=== PATIENT | female | born 1985 | race Caucasian/White ===

== ENCOUNTER 2023-08-10 12:00 | Emergency (ER) | payer OTHER ==
--- OUTSIDE RECORDS SUMMARY | 2023-08-10 12:04 | XMS REPORT | Continuity of Care Document ---
:1985 Author Organization [facility] t Address [address] [facility] [address] [place] [address] Care Team Providers Name Role Phone Lyndsay Ivan MD Primary Care Physician [phone] HARRISON FAUSTIN Attending Clinician Unavailable Lyndsay Ivan MD Attending Clinician [phone] MANDI PORTILLO Attending Clinician Unavailable Doctor Unassigned, [place] Attending Clinician Unavailable Mandi Portillo MD Attending Clinician Polina Coats RN Attending Clinician Unavailable Mark Attending Clinician Unavailable 2, [facility] Attending Clinician Unavailable LYNDSAY IVAN Attending Clinician Unavailable Mark Admitting Clinician Unavailable Payers Payer Name Policy Type Policy Number Effective Date Expiration Date S fatoumata [facility] [id number] 2016 PROGRAM (MEDICAID 00:00:00 [facility] [id number] CHOICE (HMO) Problems Condition Condition Condition Status Onset Resolution Last Treating Co mments Source Name Details Category Date Date Treatment Clinician Date High-risk High-risk Disease Active Uni vers 4-27 [place]y of [place] Branch Antepartum Antepartum Disease Active U nivers multigravi multigravi 4-27 it y of da of da of 00:00: [place] advanced advanced 00 Medica l maternal maternal Branch age age Dichorioni Dichorioni Disease Active U nivers c c 4-27 [place]y of diamniotic diam[place]otic [place] Medical , , Br anch antepartum antepartum Anxiety Anxiety Disease Active Univers disorder, disorder, 02-08 ity of unspecifie unspecifie [place] type d type 00 Medical Branch History of History of Disease Active U nivers HELLP HELLP 02-08 ity of syndrome, syndrome, 00:00: Cesar deleon currently currently 00 [facility] Branch History of History of Disease Active U nivers stillbirth stillbirth 02-08 it y of 00:00: [place] [facility] Obesity Obesity Disease Active Univers (BMI (BMI 02-08 ity of 30-39.9) 30-39.9) 00:00: [place] [facility] Obesity in Obesity in Disease Active U nivers 02-08 ity of 00:00: [place] [facility] History of History of Disease Active U nivers blood blood 02-08 ity of transfusio transfusio [place] 00 [place] Allergies, Adverse Reactions, Alerts Allergy Allergy Status Severity Reaction(s) Onset Inactive Treating Comm ents Source Name Type Date Date Clinician Codeine Propensi Active Other - See Chest Un william ty to comments 02-08 pain ity of adverse 00:00: [place] reaction 00 Medical s Branch CODEINE DRUG Active Other-Cmnt Unive rs INGREDI 02-08 ity of 00:00: [place] [facility] NO KNOWN Drug Active Univers ALLERGIE Class ity of S [facility] Social History Social Habit Start Date Stop Date Quantity Comments Source ASSERTION 2022-09-17 University of 00:00:00 [facility] History of tobacco Cigarette Smoker University of use [facility] Branch History SDOH University o f Housing Places [facility] Lived Branch Exposure to 2023-02-05 2023-02-15 Not sure University of SARS-CoV-2 (event) 00:00:00 12:32:00 [facility] Branch Alcohol intake 2023-02-15 2023-02-15 Lifetime University of 00:00:00 00:00:00 non-drinker [facility] (finding) Branch Tobacco use and 2023-02-08 2023-02-08 Smokeless Universit y of exposure 00:00:00 00:00:00 tobacco non-user [facility] dical Branch History SDOH Social 2023-02-08 2023-02-08 98 Unive rsity of Connections Phone 00:00:00 00:00:00 [place] M edical Branch History SDOH Social 2023-02-08 2023-02-08 98 Unive rsity of Connections Get 00:00:00 00:00:00 [place] Med ical Together Branch History SDOH Social 2023-02-08 2023-02-08 98 Unive rsity of Connections Mandaeism 00:00:00 00:00:00 [place] [facility] History SDOH Social 2023-02-08 2023-02-08 98 Unive rsity of Connections 00:00:00 00:00:00 [place] [facility] Membership Branch History SDOH Social 2023-02-08 2023-02-08 98 Unive rsity of Connections 00:00:00 00:00:00 [place] Medical Meetings Branch History SDOH Social 2023-02-08 2023-02-08 3 Unive rsity of Connections Living 00:00:00 00:00:00 [place] [facility] History SDAZ 2023-02-08 2023-02-08 3 University o f Housing Unable to 00:00:00 00:00:00 [facility] edical Pay Branch History SDAZ 2023-02-08 2023-02-08 3 University o f Housing Homeless 00:00:00 00:00:00 [facility] dical Last Year Branch Sex Ass[birth year] At [birth year] Universit y of 00:00:00 00:00:00 [facility] Smoking Status Start Date Stop Date Source Ex-smoker 2023-02-08 00:00:00 2023-02-08 00:00:00 [facility] Medications Ordered Filled Start Stop Current Ordering Indication Dosage Frequency Signature Comments Components Source Medication Medication Date Date Medication? Clinician (SIG) Name Name aspirin 81 2022-0 Yes [id number] 81mg Take 1 Univers mg EC 4-27 tablet by ity of tablet 00:00: mouth in [place] 00 the Medical morning. Branch aspirin 81 2022-0 Yes [id number] 81mg Take 1 Univers mg EC 4-27 tablet by ity of tablet 00:00: mouth in [place] 00 the Medical morning. Branch aspirin 81 2022-0 Yes [id number] 81mg Take 1 Univers mg EC 4-27 tablet by ity of tablet 00:00: mouth in [place] 00 the Medical morning. Branch aspirin 81 2023-0 Yes [id number] 81mg Take 1 Univers mg EC 4-27 tablet by ity of tablet 00:00: mouth in [place] 00 the Medical morning. Branch aspirin 81 2023-0 Yes [id number] 81mg Take 1 Univers mg EC 4-27 tablet by ity of tablet 00:00: mouth in [place] 00 the Medical morning. Branch aspirin 81 2023-0 Yes [id number] 81mg Take 1 Univers mg EC 4-27 tablet by ity of tablet 00:00: mouth in [place] 00 the Medical morning. Branch aspirin 81 2023-0 Yes [id number] 81mg Take 1 Univers mg EC 4-27 tablet by ity of tablet 00:00: mouth in [place] 00 the Medical morning. Branch aspirin 81 2023-0 Yes [id number] 81mg Take 1 Univers mg EC 4-27 tablet by ity of tablet 00:00: mouth in [place] 00 the Medical morning. Branch ALPRAZolam 2023-0 Yes TAKE 1 Unive rs 0.5 mg 3-20 TABLET BY ity of tablet 00:00: MOUTH [place] 00 EVERY 6 Medical HOURS Branch NEEDED FOR ANXIETY. MAXIMUM DAILY DOSE IS 4 ALPRAZolam 3-0 Yes TAKE 1 Unive rs 0.5 mg 3-20 TABLET BY ity of tablet 00:00: MOUTH [place] 00 EVERY 6 Medical HOURS Branch NEEDED FOR ANXIETY. MAXIMUM DAILY DOSE IS 4 ALPRAZolam 2023-0 Yes TAKE 1 Unive rs 0.5 mg 3-20 TABLET BY ity of tablet 00:00: MOUTH [place] 00 EVERY 6 Medical HOURS Branch NEEDED FOR ANXIETY. MAXIMUM DAILY DOSE IS 4 ALPRAZolam 2023-0 Yes TAKE 1 Unive rs 0.5 mg 3-20 TABLET BY ity of tablet 00:00: MOUTH [place] 00 EVERY 6 Medical HOURS Branch NEEDED FOR ANXIETY. MAXIMUM DAILY DOSE IS 4 ALPRAZolam 2023-0 Yes TAKE 1 Unive rs 0.5 mg 3-20 TABLET BY ity of tablet 00:00: MOUTH [place] 00 EVERY 6 Medical HOURS Branch NEEDED FOR ANXIETY. MAXIMUM DAILY DOSE IS 4 ALPRAZolam 2023-0 Yes TAKE 1 Unive rs 0.5 mg 3-20 TABLET BY ity of tablet 00:00: MOUTH [place] 00 EVERY 6 Medical HOURS Branch NEEDED FOR ANXIETY. MAXIMUM DAILY DOSE IS 4 ALPRAZolam 2023-0 Yes TAKE 1 Unive rs 0.5 mg 3-20 TABLET BY ity of tablet 00:00: MOUTH [place] 00 EVERY 6 Medical HOURS Branch NEEDED FOR ANXIETY. MAXIMUM DAILY DOSE IS 4 ALPRAZolam 2023-0 Yes TAKE 1 Unive rs 0.5 mg 3-20 TABLET BY ity of tablet 00:00: MOUTH [place] 00 EVERY 6 Medical HOURS Branch NEEDED FOR ANXIETY. MAXIMUM DAILY DOSE IS 4 ALPRAZolam 2023-0 Yes TAKE 1 Unive rs 0.5 mg 3-20 TABLET BY ity of tablet 00:00: MOUTH [place] 00 EVERY 6 Medical HOURS Branch NEEDED FOR ANXIETY. MAXIMUM DAILY DOSE IS 4 ALPRAZolam 2023-0 Yes TAKE 1 Unive rs 0.5 mg 3-20 TABLET BY ity of tablet 00:00: MOUTH [place] 00 EVERY 6 Medical HOURS Branch NEEDED FOR ANXIETY. MAXIMUM DAILY DOSE IS 4 ALPRAZolam 2023-0 Yes TAKE 1 Unive rs 0.5 mg 3-20 TABLET BY ity of tablet 00:00: MOUTH [place] 00 EVERY 6 Medical HOURS Branch NEEDED FOR ANXIETY. MAXIMUM DAILY DOSE IS 4 ALPRAZolam 2023-0 Yes TAKE 1 Unive rs 0.5 mg 3-20 TABLET BY ity of tablet 00:00: MOUTH [place] 00 EVERY 6 Medical HOURS Branch NEEDED FOR ANXIETY. MAXIMUM DAILY DOSE IS 4 ALPRAZolam 2023-0 Yes TAKE 1 Unive rs 0.5 mg 3-20 TABLET BY ity of tablet 00:00: MOUTH [place] 00 EVERY 6 Medical HOURS Branch NEEDED FOR ANXIETY. MAXIMUM DAILY DOSE IS 4 aspirin 81 2023-0 Yes 81mg Take 1 Unive rs mg EC 3-17 tablet by ity of tablet 00:00: mouth in [place] 00 the Medical morning. Branch aspirin 81 2023-0 Yes 81mg Take 1 Unive rs mg EC 3-17 tablet by ity of tablet 00:00: mouth in [place] 00 the Medical morning. Branch aspirin 81 2023-0 Yes 81mg Take 1 Unive rs mg EC 3-17 tablet by ity of tablet 00:00: mouth in [place] 00 the Medical morning. Branch aspirin 81 2023-0 Yes 81mg Take 1 Unive rs mg EC 3-17 tablet by ity of tablet 00:00: mouth in [place] 00 the Medical morning. Branch aspirin 81 3-0 Yes 81mg Take 1 Unive rs mg EC 3-17 tablet by ity of tablet 00:00: mouth in [place] 00 the Medical morning. Branch aspirin 81 3-0 2023- No 81mg Take 1 Univ ers mg EC 3-17 - tablet by ity of tablet 00:00: 00:00 mouth in [place] 00 :00 the Medical morning. Branch valACYclovi 3-0 2023- No Unive rs r 500 mg -14 02-08 ity of tablet 00:00: 00:00 [place] 00 :00 Medical Branch valACYclovi 3-0 2023- No Unive rs r 500 mg 3-14 02-08 ity of tablet 00:00: 00:00 [place] 00 :00 Medical Branch ondansetron 2023-0 Yes TAKE 1 Univ ers 4 mg 3-06 TABLET BY ity of disintegrat 00:00: MOUTH [place] ing tablet 00 UNDER THE Medi herminia TONGUE Branch FOUR TIMES DAILY NEEDED ondansetron 2023-0 Yes TAKE 1 Univ ers 4 mg 3-06 TABLET BY ity of disintegrat 00:00: MOUTH [place] ing tablet 00 UNDER THE Medi herminia TONGUE Branch FOUR TIMES DAILY NEEDED ondansetron 2023-0 Yes TAKE 1 Univ ers 4 mg 3-06 TABLET BY ity of disintegrat 00:00: MOUTH [place] ing tablet 00 UNDER THE Medi herminia TONGUE Branch FOUR TIMES DAILY NEEDED ondansetron 2023-0 Yes TAKE 1 Univ ers 4 mg 3-06 TABLET BY ity of disintegrat 00:00: MOUTH [place] ing tablet 00 UNDER THE Medi herminia TONGUE Branch FOUR TIMES DAILY NEEDED ondansetron 2023-0 Yes TAKE 1 Univ ers 4 mg 3-06 TABLET BY ity of disintegrat 00:00: MOUTH [place] ing tablet 00 UNDER THE Medi herminia TONGUE Branch FOUR TIMES DAILY NEEDED ondansetron 2023-0 Yes TAKE 1 Univ ers 4 mg 3-06 TABLET BY ity of disintegrat 00:00: MOUTH [place] ing tablet 00 UNDER THE Medi herminia TONGUE Branch FOUR TIMES DAILY NEEDED ondansetron 2023-0 Yes TAKE 1 Univ ers 4 mg 3-06 TABLET BY ity of disintegrat 00:00: MOUTH [place] ing tablet 00 UNDER THE Medi herminia TONGUE Branch FOUR TIMES DAILY NEEDED ondansetron 2023-0 Yes TAKE 1 Univ ers 4 mg 3-06 TABLET BY ity of disintegrat 00:00: MOUTH [place] ing tablet 00 UNDER THE Medi herminia TONGUE Branch FOUR TIMES DAILY NEEDED ondansetron 2023-0 Yes TAKE 1 Univ ers 4 mg 3-06 TABLET BY ity of disintegrat 00:00: MOUTH [place] ing tablet 00 UNDER THE Medi herminia TONGUE Branch FOUR TIMES DAILY NEEDED ondansetron 2023-0 Yes TAKE 1 Univ ers 4 mg 3-06 TABLET BY ity of disintegrat 00:00: MOUTH [place] ing tablet 00 UNDER THE Medi herminia TONGUE Branch FOUR TIMES DAILY NEEDED ondansetron 2023-0 Yes TAKE 1 Univ ers 4 mg 3-06 TABLET BY ity of disintegrat 00:00: MOUTH [place] ing tablet 00 UNDER THE Medi herminia TONGUE Branch FOUR TIMES DAILY NEEDED ondansetron 2023-0 Yes TAKE 1 Univ ers 4 mg 3-06 TABLET BY ity of disintegrat 00:00: MOUTH [place] ing tablet 00 UNDER THE Medi herminia TONGUE Branch FOUR TIMES DAILY NEEDED ondansetron 2023-0 Yes TAKE 1 Univ ers 4 mg 3-06 TABLET BY ity of disintegrat 00:00: MOUTH [place] ing tablet 00 UNDER THE Medi herminia TONGUE Branch FOUR TIMES DAILY NEEDED docusate 2023-0 Yes 100mg Take 1 Univer s 100 mg 2-27 capsule by ity of capsule 00:00: mouth in [place] the Medical morning Branch and 1 capsule in the evening. docusate 2023-0 Yes 100mg Take 1 Univer s 100 mg 2-27 capsule by ity of capsule 00:00: mouth in [place] the Medical morning Branch and 1 capsule in the evening. docusate 2023-0 Yes 100mg Take 1 Univer s 100 mg 2-27 capsule by ity of capsule 00:00: mouth in [place] the Medical morning Branch and 1 capsule in the evening. docusate 2023-0 Yes 100mg Take 1 Univer s 100 mg 2-27 capsule by ity of capsule 00:00: mouth in [place] the Medical morning Branch and 1 capsule in the evening. docusate 2023-0 Yes 100mg Take 1 Univer s 100 mg 2-27 capsule by ity of capsule 00:00: mouth in [place] the Medical morning Branch and 1 capsule in the evening. docusate 2023-0 Yes 100mg Take 1 Univer s 100 mg 2-27 capsule by ity of capsule 00:00: mouth in [place] [address] the Medical morning Branch and 1 capsule in the evening. docusate 2023-0 Yes 100mg Take 1 Univer s 100 mg 2-27 capsule by ity of capsule 00:00: mouth in [place] [address] the Medical morning Branch and 1 capsule in the evening. docusate 2023-0 Yes 100mg Take 1 Univer s 100 mg 2-27 capsule by ity of capsule 00:00: mouth in [place] [address] the Medical morning Branch and 1 capsule in the evening. docusate 2023-0 Yes 100mg Take 1 Univer s 100 mg 2-27 capsule by ity of capsule 00:00: mouth in [place] 00 the Medical morning Branch and 1 capsule in the evening. docusate 2023-0 Yes 100mg Take 1 Univer s 100 mg 2-27 capsule by ity of capsule 00:00: mouth in [place] [address] the Medical morning Branch and 1 capsule in the evening. docusate 2023-0 Yes 100mg Take 1 Univer s 100 mg 2-27 capsule by ity of capsule 00:00: mouth in [place] [address] the Medical morning Branch and 1 capsule in the evening. docusate 2023-0 Yes 100mg Take 1 Univer s 100 mg 2-27 capsule by ity of capsule 00:00: mouth in [place] [address] the Medical morning Branch and 1 capsule in the evening. docusate 2023-0 Yes 100mg Take 1 Univer s 100 mg 2-27 capsule by ity of capsule 00:00: mouth in [place] [address] the Medical morning [place] and 1 capsule in the evening. Vital Signs Vital Name Observation Time Observation Value Comments Source Systolic blood 2023-02-15 17:50:00 120 mm[Hg] [facility] Diastolic blood 2023-02-15 17:50:00 74 mm[Hg] [facility] Heart rate 2023-02-15 17:50:00 98 /min [facility] Body temperature 2023-02-15 17:50:00 36.11 Yvonne [facility] Respiratory rate 2023-02-15 17:50:00 18 /min [facility] Body height 2023-02-15 17:50:00 160 cm [facility] Body weight 2023-02-15 17:50:00 97.523 kg Universi ty of [place] [facility] BMI 2023-02-15 17:50:00 38.09 kg/m2 Universi ty of [place] [facility] Systolic blood 2023-02-08 18:35:00 115 mm[Hg] Univer sity of pressure [place] [facility] Diastolic blood 2023-02-08 18:35:00 71 mm[Hg] Unive rsity of pressure [place] [facility] Heart rate 2023-02-08 18:35:00 87 /min [facility]i ty [facility] [place] [facility] Body temperature 2023-02-08 18:35:00 36.61 Yvonne Univ ersity of [place] [facility] Body height 2023-02-08 18:35:00 160 cm Universi ty of [place] [facility] Body weight 2023-02-08 18:35:00 97.342 kg Universi ty of [place] [facility] BMI 2023-02-08 18:35:00 38.01 kg/m2 [facility]i [facility] [place] [facility] Systolic blood 2023-02-08 13:08:00 108 mm[Hg] Univer sity of pressure [place] [facility] Diastolic blood 2023-02-08 13:08:00 74 mm[Hg] Unive rsity of pressure [place] [facility] Heart rate 2023-02-08 13:08:00 96 /min [facility]i ty [facility] [place] [facility] Body height 2023-02-08 13:08:00 160 cm [facility]i [facility] [place] [facility] Body weight 2023-02-08 13:08:00 97.433 kg [facility]i [facility] [place] [facility] BMI 2023-02-08 13:08:00 38.05 kg/m2 Universi ty [facility] [place] [facility] Oxygen saturation in 2023-02-08 13:08:00 97 /min [facility] Arterial blood by [facility] Pulse oximetry Branch Procedures Procedure Date / Time Performed Performing Clinician [facility] e EXTERNAL PROVIDER 2023-02-19 05:01:00 Doctor Unassigned, No [facility] [place] RECORDS Name Medical Branch POCT URINALYSIS W/O 2023-02-08 00:00:00 Mandi Portillo Universi ty of [place] SPECIFIC GRAVITY Medical Branch Encounters Start End Encounter Admission Attending Care Care Encounter Source Date/Time Date/Time Type Type Clinicians Facility Department ID 2023-01-25 Inpatient LIAM [facility] UNITAlyssa [id number] [place] 10:00:00 HARRISON [id number] [facility] 2023-04-03 2023-04-03 Patient Marzena [facility] [id number] [id number] Univers 00:00:00 00:00:00 Secure Msg , Lyndsay [facility] [id number] ity of M [place] 4.2.7.2.686 Jose R as KINDRA?BLEA [phone] [place] dical [place] [address] MEDICAL OFFICE [facility] 2023-02-27 2023-02-27 Outpatient P [facility] [id number] Univers 09:15:00 09:15:00 ity of [facility] 2023-02-22 2023-02-22 Outpatient R MANDI PORTILLO [facility] [id number] Univers 10:30:00 10:30:00 ity of [facility] 2023-02-19 2023-02-19 Orders Doctor KAYE 1.2.840.114 [id number] Univers 00:00:00 00:00:00 Only Unassigned, IRVIN [id number] ity of [place] [facility] 4.2.7.2.686 Jose R as [phone] [address] 2023-02-15 2023-02-15 Outpatient R MANDI PORTILLO [facility] [id number] Univers 13:00:00 13:03:29 ity of [facility] 2023-02-15 2023-02-15 Routine Guanako Mandi [facility] [id number] Univers 13:00:00 13:03:29 Cam RAVIND[place] 350.1.13.10 ity of [facility] 4.2.[place] [phone] [place] REMA [address] [facility] 2023-02-15 2023-02-15 Telephone Jorge L ARNANCY NICOLE 1.2.840.114 [id number] Univers 00:00:00 00:00:00 Polina MAYA 350.1.13.10 [place] y of P[place].2.686 [place] [phone] [facility] [address] 2023-02-12 2023-02-12 Patient Mandi Portillo [place] [id number] Univers 00:00:00 00:00:00 Secure Msg Cheng [place] 350.1.13.10 ity of [facility] 4.2.7.2.686 [place] [phone] [place] dical NAL [address] [facility] 2023-02-09 2023-02-09 Outpatient White_M MMG MMG [id number] [place] 00:00:00 00:00:00 0428 [facility] 2023-02-09 2023-02-09 Telephone [facility] 1.2.840.114 [id number] [facility] 00:00:00 00:00:00 , Lyndsay LUNA 350.1.13.10 ity of M [place] 4.2.7.2.686 Jose R as KINDRA?BLEA [phone] [address] OFFICE [facility] 2023-02-08 2023-02-08 Metal Furniture [place] 2, [facility] 1.2.840.114 [id number] [facility] 14:45:00 15:00:00 Visit Lyndsay Ivan 350. 1.13.10 ity of [place] 4.2.7.2.[place] [phone] [place] d[place] NAL [address] [facility] 2023-02-08 2023-02-08 Initial Mandi Portillo [facility] [id number] Univers 13:30:00 14:40:36 Cam [place] 350.1.13.10 ity of Visit [place] 4.2.7.2.[place] [phone] [place] NAL [address] [facility] 2023-02-08 2023-02-08 Office [facility] 1.2.840.114 [id number] Univers 08:00:00 08:41:19 Visit Lyndsay 350.1.13.10 ity of Kevin [place] 4.2.7.2.686 Jose R as KINDRA?BLEA [phone] [place] dic[address] OFFICE [facility] 2023-02-08 2023-02-08 Outpatient R MARZENA [facility] [id number] Univers 08:00:00 08:41:19 , LYNDSAY it y of [facility] 2023-02-08 2023-02-08 Telephone [facility] 1.2.840.114 [id number] Univers 00:00:00 00:00:00 , Lyndsay HEALTH 350.1.13.10 ity of [facility] 4.2.7.2.686 Jose R as KINDRA?BLEA [phone] [address] OFFICE [facility] 2023-02-08 2023-02-08 RefMandi Hernandes [facility] [id number] Univers 00:00:00 00:00:00 Cam [place] 350.1.13.10 i ty of [place] 4[place]2.7.2.[place] [id number] [address] 2023-02-08 2023-02-08 Telephone [facility] 1.2.840.114 [id number] Univers 00:00:00 00:00:00 [facility] 350.1.13.10 ity of Kevin [facility] 4.2.7.2.686 Jose R as KINDRA?BLEA [phone] [address] OFFICE [facility] 2023-02-05 2023-02-05 Outpatient White_M MMG MMG [id number] [place] 00:00:00 00:00:00 0424 [facility] 2023-01-22 2023-01-22 Outpatient White_M MMG MMG [id number] [place] 00:00:00 00:00:00 0410 [facility] 2023-01-19 2023-01-19 Outpatient White_M MMG MMG [id number] [place] 00:00:00 00:00:00 0407 [facility] 2023-01-10 2023-01-10 Outpatient White_M MMG MMG [id number] [place] 00:00:00 00:00:00 0329 [facility] 2023-01-10 2023-01-10 Outpatient White_M MMG MMG [id number] [place] 00:00:00 00:00:00 0331 [facility] Results Test Description Test Time Test Comments Results Result Comments Source POCT URINALYSIS W/O SPECIFIC GRAVITY 2023-02-08 18:34:00 Test Item Value Reference Range Interpretation Comme nts POCT PH U (test code = 3254) n/a 5-8 POCT U LEUK EST (test code = 3263) n/a Negative - Negative POCT U NIT (test code = 3262) n/a Negative - Negative POCT U PROT (test code = 3259) Negative Negative - Negative POCT U GLU (test code = 3256) Normal Negative - Negative POCT U KETONE (test code = 3258) n/a Negative - Negative POCT U BLD (test code = 3257) n/a Negative - Negative [facility] MATERNAL OB [id number] 09:13:[address] [id number] IMAGING REPORTPatient Name: Sondra MENSAH of Service: [id number]: 31 Sex: F Order #: [id number] Room: OPODOB: 1985 X-Ray Number: [id number] Record Number: [id number] Hospital Number: [id number] Physician: JUSTA ROCHA Physician: JUSTA ROCHA obstetrical sonogram:CLINICAL HISTORY: Evaluate size and dates : No priorsTECHNIQUE: Real-time scanning was performedFINDINGS: Ultrasounddemonstrates a single living intrauterine gestationin a variable presentation with a posterior grade1 placenta which is onthe maternal left side. There is no evidence of previa or abruption.SHARON is 10.1 cm.Biparietal diameter is 4.4 cm and the head circumference is 15.5 cm.Abdomen circumference is 13.1 and the femur length is 2.8.The cervix measures 4.8 cm. cardiac activity is measured at 147 bpm the fetus.4 chambered heart is demonstrated.The cord insertion and 3 vessel cord, stomach, spine, bl adder and upperlower extremities were all well seen. The kidneys were not well seen at thepresent time.Examination the genitalia is consistent with a male gender.Impression: Ultrasound verifies a single living intrauterine gestation withan age of 18 weeks 5 days and an KOLE of May 27, 2017 as discussed indetail above. There are no prior studies.Electronically Signed By: Jose Mcguire M.D., 01/01/2017 9:11 Eda authenticated by SHANIQUA Ward 2017-01-01 09:11:24
[2023-08-10 13:34] LABS: Absolute Lymphocytes (CBC) 2.5 K/uL (0.7-4.9); Hematocrit 36.8 % (36.0-45.0); Lymphocytes % 28.8 % (15.3-44.8); MCV 84.4 fL (80-100); MPV 8.5 fL (7.6-11.3); Platelets 314 thou/uL (152-406); RBC Red Blood Cell Count 4.36 M/uL (3.86-4.86)
[2023-08-10 13:37] LABS: Potassium 3.9 mEq/L (3.5-5.1)
--- NOTE | 2023-08-10 14:02 | RAD REPORT ---
EXAM DESCRIPTION: CT - Head Brain Wo Cont - 08/10/2023 1:35 pm CLINICAL HISTORY: Dizziness COMPARISON: none TECHNIQUE: Computed axial tomography of the head was obtained. IV contrast was not requested. All CT scans are performed using dose optimization technique as appropriate and may include automated exposure control or mA/KV adjustment according to patient size. FINDINGS: An intracranial bleed is not seen The ventricles are normal in caliber Artifact from a left earring results in limited evaluation of portions of the left temporal lobe. No significant hypodense areas within the brain visualized No extra-axial fluid collection is noted. Fluid within the sinuses/ mastoids is not seen IMPRESSION: No acute intracranial abnormality is seen If patient's symptoms persist MRI of the brain would be recommended
--- NOTE | 2023-08-10 14:03 | RAD REPORT ---
EXAM DESCRIPTION: CTFacial Bones W Con Mpr08/10/2023 1:40 pm CLINICAL HISTORY: Right facial pain and swelling COMPARISON: None. TECHNIQUE: Computed axial tomography of the face obtained with coronal and sagittal reconstruction. 100 cc Isovue-[address] scans are performed using dose optimization technique as appropriate and may include automated exposure control or mA/KV adjustment according to patient size. FINDINGS: Mild edema is present within the superficial tissues mandible and maxilla. No abscess visu alized The parotid and submandibular glands appear unremarkable. The parapharyngeal fat is clear. Fluid within the sinuses is not noted. IMPRESSION: Mild edema within superficial tissues. No abscess seen .
[2023-08-10] MEDS ORDERED: CLINDAMYCIN 900MG/D5W 900 MG/50 ML IVPB IV ONE (15:15)
[2023-08-10] MEDS ORDERED: NA CHLORIDE 0.9% 1,000 ML ONE (15:15)
--- NOTE | 2023-08-10 15:32 | ER ---
Nurse's Notes [facility] Name: Nancy Antonio Age: 37 yrs Sex: Female : 1985 Arrival Date: 08/10/2023 Time: 12:00 Bed 10 Private MD: Diagnosis: Dental Infection;Dizziness and giddiness Presentation: 08/10 12:25 Chief complaint: Patient states: cracked tooth, feels dizzy and disoriented. tm6 Coronavirus screen: Client denies travel out of the [place] in the last 14 days. Client indicates they have traveled out of the [place] in the last 14 days. At this time, unable to obtain information related to travel outside the [place] Ebola Screen: Patient negative for fever greater than or equal to 101.5 degrees Fahrenheit, and additional compatible Ebola Virus Disease symptoms Patient denies exposure to infectious person. Patient denies travel to an Ebola-affected area in the 21 days before illness onset. No symptoms or risks identified at this time. Initial Sepsis Screen: Does the patient meet any 2 criteria? No. Patient's initial sepsis screen is negative. Does the patient have a suspected source of infection? No. Patient's initial sepsis screen is negative. Risk Assessment: Do you want to hurt yourself or someone else? Patient reports no desire to harm self or others. Onset of symptoms was August 10, 2023 at 12:26. 12:25 Method Of Arrival: Ambulatory tm6 12:25 Acuity: EVON 3 tm6 Triage Assessment: 12:26 General: Appears uncomfortable, Behavior is calm, cooperative. Pain: Complains of pain tm6 in mouth. EENT: Reports pain in mouth. Neuro: Level of Consciousness is awake, alert, obeys commands, Oriented to person, place, time, situation, Appropriate for age. Respiratory: Airway is patent Respiratory effort is even, unlabored, Respiratory pattern is regular, symmetrical. 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 - Social history:: Smoking status: Patient denies any tobacco usage or history of. Patient/guardian denies using alcohol. Screenin:33 [facility] ED Fall Risk Assessment (Adult) History of falling in the last 3 months, kd3 including since admission No falls in past 3 months (0 pts) Confusion or Disorientation No (0 pts) Intoxicated or Sedated No (0 pts) Impaired Gait No (0 pts) Mobility Assist Device Used No (0 pt) Altered Elimination No (0 pt) Score/Fall Risk Level 0 - 2 = Low Risk Maintained a safe environment. Abuse screen: Denies threats or abuse. Denies injuries from another. Nutritional screening: No deficits noted. Tuberculosis screening: No symptoms or risk factors identified. Assessment: 14:56 General: Appears in no apparent distress. Behavior is calm, cooperative. Neuro: Level kd3 of Consciousness is awake, alert, obeys commands, Oriented to person, place, time, situation. Cardiovascular: Capillary refill < 3 seconds in bilateral fingers. Respiratory: Airway is patent Trachea midline Respiratory effort is even, unlabored, Respiratory pattern is regular, symmetrical. Vital Signs: 12:25 Pain 8/10; tm6 12:26 BP 149 / 90; Pulse 90; Resp 18; Temp 97.9(TE); Pulse Ox 97% on R/A; Weight 92.99 kg; tm6 Height 5 ft. 3 in. ; Pain 8/10; 14:55 BP 114 / 73 Supine; Pulse 70; Resp 18; Pulse Ox 100% on R/A; kd3 14:55 BP 115 / 78 Sitting; Pulse 74; Resp 15; Pulse Ox 100% on R/A; kd3 14:55 BP 120 / 86 Standing; Pulse 78; Resp 19; Pulse Ox 100% on R/A; kd3 16:35 BP 118 / 72; Pulse 71; Resp 19; Pulse Ox 99% on R/A; kd3 12:26 Body Mass Index 36.31 (92.99 kg, 160.02 cm) tm6 12:25 Pain Scale: Adult tm6 12:26 Pain Scale: Adult tm6 ED Course: 12:03 Patient arrived in ED. im 12:14 Kayleigh Cleary PA-C is PHCP. sb4 12:14 Prince Brody MD is Attending Physician. sb4 12:26 Triage completed. tm6 12:26 Arm band placed on right wrist. tm6 13:10 Basic Metabolic Panel Sent. bc6 13:10 CBC with Diff Sent. bc6 13:10 Inserted saline lock: 20 gauge in left antecubital area, using aseptic technique. Blood bc6 collected. 13:37 Head Brain Wo Cont CT In Process Unspecified. EDMS 13:41 Facial Bones W/ Con \T\ MPR CT In Process Unspecified. EDMS 14:46 Judit Freitas, RN is Primary Nurse. kd3 16:34 Patient has correct armband on for positive identification. Provided Education on: kd3 dental care. 16:34 No provider procedures requiring assistance completed. IV discontinued, intact, kd3 bleeding controlled, No redness/swelling at site. Pressure dressing applied. Administered Medications: 15:07 Drug: NS 0.9% IV 1000 ml IV at 1 bolus Per protocol; 1000 mL bolus Route: IV; Rate: 1 kd3 bolus; Site: left antecubital; 16:35 Follow up: IV Status: Completed infusion; IV Intake: 1000ml kd3 15:07 Drug: Clindamycin IVPB 900 mg IVPB once over 30 mins; (mix in 50 mL) Route: IVPB; kd3 Infused Over: 30 mins; Site: left antecubital; 16:35 Follow up: IV Status: Completed infusion kd3 Medication: 16:34 VIS not applicable for this client. kd3 Intake: 16:35 IV: 1000ml; Total: 1000ml. kd3 Outcome: 15:31 Discharge ordered by . sb4 16:34 Discharged to home ambulatory, kd3 16:34 Condition: stable 16:34 Discharge instructions given to patient, Instructed on discharge instructions, follow up and referral plans. Demonstrated understanding of instructions, follow-up care, medications, Prescriptions given X 2, 16:36 Patient left the ED. kd3 Signatures: Dispatcher [employer] [facility]I Judit Freitas, RN RN kd3 Kayleigh Cleary, PA-C PA-C sb4 Thelma Narayan bc6 Yasmin Vidal Tawney, RN RN tm6
--- NOTE | 2023-08-10 15:32 | EDPHYS ---
Physician Documentation [facility] Name: Nancy Antonio Age: 37 yrs Sex: Female : 1985 Arrival Date: 08/10/2023 Time: 12:00 Bed 10 Private MD: ED Physician Prince Brody HPI: 08/10 15:19 This 37 yrs old Female presents to ER via Ambulatory with complaints of Dizziness, sb4 Toothache. 16:30 patient states she has a cracked left upper molar, is unsure when it occurred but it sb4 has become more painful and she is now experiencing dizziness. she denies any fevers. she has not seen a dentist. she states she is under a lot of stress because she had twins 11 weeks ago and has 8 children at home, all under the age of 10. she denies any chest pain, shortness of breath, diaphoresis, nausea, vomiting. 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 - Social history:: Smoking status: Patient denies any tobacco usage or history of. Patient/guardian denies using alcohol. ROS: 16:30 Constitutional: Negative for fever, chills, and weight loss, sb4 16:30 ENT: Positive for dental pain, 16:30 Neuro: Positive for dizziness, 16:30 All other systems are negative, Exam: 16:30 Constitutional: This is a well developed, well nourished patient who is awake, alert, sb4 and in no acute distress. Head/Face: Normocephalic, atraumatic. Eyes: Extra-ocular motions intact. Periorbital areas with no swelling, redness, or edema. Cardiovascular: Regular rate and rhythm with a normal S1 and S2. Respiratory: Lungs have equal breath sounds bilaterally, clear to auscultation and percussion. No rales, rhonchi or wheezes noted. No increased work of breathing, no retractions or nasal flaring. Abdomen/GI: Soft, non-tender, no distension. Skin: Warm, dry with normal turgor. Normal color with no rashes, no lesions, and no evidence of cellulitis. MS/ Extremity: Pulses equal, no cyanosis. Neurovascular intact. Full, normal range of motion. Neuro: Awake and alert, GCS 15, oriented to person, place, time, and situation. Motor strength 5/5 in all extremities. Sensory grossly intact. 16:30 ENT: Dental exam: dental caries, that is moderate, diffusely, fractured teeth are noted, specifically the upper right first molar (#3), pain, Vital Signs: 12:25 Pain 8/10; tm6 12:26 BP 149 / 90; Pulse 90; Resp 18; Temp 97.9(TE); Pulse Ox 97% on R/A; Weight 92.99 kg; tm6 Height 5 ft. 3 in. ; Pain 8/10; 14:55 BP 114 / 73 Supine; Pulse 70; Resp 18; Pulse Ox 100% on R/A; kd3 14:55 BP 115 / 78 Sitting; Pulse 74; Resp 15; Pulse Ox 100% on R/A; kd3 14:55 BP 120 / 86 Standing; Pulse 78; Resp 19; Pulse Ox 100% on R/A; kd3 16:35 BP 118 / 72; Pulse 71; Resp 19; Pulse Ox 99% on R/A; kd3 12:26 Body Mass Index 36.31 (92.99 kg, 160.02 cm) tm6 12:25 Pain Scale: Adult tm6 12:26 Pain Scale: Adult tm6 MDM: 12:31 Patient medically screened. sb4 16:30 Differential diagnosis: cardiac arrhythmia, CVA, vertigo, periapical abscess. Data sb4 reviewed: vital signs, nurses notes, lab test result(s), EKG, radiologic studies, and as a result, I will discharge patient. Counseling: I had a detailed discussion with the patient and/or guardian regarding the historical points, exam findings, and any diagnostic results supporting the discharge/admit diagnosis, lab results, radiology results, the need for outpatient follow up, a dentist, to return to the emergency department if symptoms worsen or persist or if there are any questions or concerns that arise at home. 08/10 12:35 Order name: Basic Metabolic Panel; Complete Time: 13:38 sb4 08/10 12:35 Order name: CBC with Diff; Complete Time: 13:37 sb4 08/10 12:33 Order name: Facial Bones W/ Con \T\ MPR CT; Complete Time: 14:13 sb4 08/10 12:33 Order name: Head Brain Wo Cont CT; Complete Time: 14:13 sb4 08/10 12:35 Order name: EKG; Complete Time: 12:35 sb4 08/10 12:35 Order name: EKG - Nurse/Tech; Complete Time: 13:10 sb4 08/10 12:35 Order name: Orthostatics; Complete Time: 14:57 sb4 EC:12 Rate is 72 beats/min. Rhythm is regular, Normal Sinus Rhythm. CO interval is normal at sb4 160 msec. QRS interval is normal at 76 msec. QT interval is normal at 438 msec. Interpreted by me. Reviewed by me. Administered Medications: 15:07 Drug: NS 0.9% IV 1000 ml IV at 1 bolus Per protocol; 1000 mL bolus Route: IV; Rate: 1 kd3 bolus; Site: left antecubital; 16:35 Follow up: IV Status: Completed infusion; IV Intake: 1000ml kd3 15:07 Drug: Clindamycin IVPB 900 mg IVPB once over 30 mins; (mix in 50 mL) Route: IVPB; kd3 Infused Over: 30 mins; Site: left antecubital; 16:35 Follow up: IV Status: Completed infusion kd3 Disposition Summary: 08/10/23 15:31 Discharge Ordered Notes: Location: Home sb4 Problem: new sb4 Symptoms: are unchanged sb4 Condition: Stable sb4 Diagnosis - Dental Infection sb4 - Dizziness and giddiness sb4 Followup: sb4 - With: Emergency Department - When: As needed - Reason: Trouble breathing, Worsening of condition Discharge Instructions: - Discharge Summary Sheet sb4 - Dizziness sb4 - Dental Abscess, [id number] sb4 Forms: - Medication Reconciliation Form sb4 - Thank You Letter sb4 - Antibiotic Education sb4 - Prescription Opioid Use sb4 - Patient Portal Instructions sb4 - Leadership Thank You Letter sb4 Prescriptions: - Amoxicillin 875 mg Oral Tablet - take 1 tablet ORAL route every 12 hours for 10 days; 20 tablet; Refills: 0, sb4 Product Selection Permitted - Meclizine 25 mg Oral Tablet - take 1 tablet ORAL route every 8 hours As needed; 30 tablet; Refills: 0, sb4 Product Selection Permitted Signatures: Dispatcher [facility] Judit Moy RN RN kd3 Kayleigh Cleary, PASathish PA-C sb4 Kasia Neville, RN RN tm6
--- NOTE | 2023-08-10 15:40 | EKG ---
Test Date: 2023-08-10 Test Time: 13:07:56 Supervisor [employer] Duplicating Unit: FRANNY MEASUREMENT RESULTS: Intervals: Rate: 72 OR: 160 QRSD: 76 QT: 400 QTc: 438 [place]: P: 51 OR: 160 QRS: 22 T: 26 INTERPRETIVE STATEMENTS: Normal sinus rhythm Cannot rule out Anterior infarct, age undetermined Abnormal ECG No previous ECG available for comparison Electronically Signed On 08-10-23 15:39:52 CDT by Reji Pickering
[2023-08-10 17:21] VITALS: TEMP 97.9
[2023-08-10 17:24] VITALS: BP 118/72; O2SAT 99
== END 2023-08-10 16:36 | disposition home or self-care (01) ==
LOC: ER 12:00
DX: K04.7 Periapical abscess without sinus (principal); R42 Dizziness and giddiness
CPT/HCPCS: 96365; 93005; 85025; 80048; 36415; 70450; 70487; 76377; 99284; Q9967; J7030